=== PATIENT | male | born 1940 | race Caucasian/White ===

== ENCOUNTER 2016-11-09 00:14 | Emergency (ER) | payer OTHER ==
[~2016-11-09] VITALS: Ht 182.9 cm; Wt 61.0 kg
[2016-11-09 00:18] VITALS: TEMP 36.5; Ht 182.9 cm; Wt 61.0 kg
--- NOTE | 2016-11-09 00:40 | EMERGENCY ROOM VISIT NOTE ---
History Report prepared by Antonella: Amadou Maradiaga Under the Supervision of: Dr. Myles Wills D.O. First contact with patient: 00:22 Chief Complaint: ILLNESS Stated Complaint: SEVERE ITCHTY HEAD,SWEATS,NOT FEELING WELL History of Present Illness The patient is a 76 year old male who presents to the Emergency Room with complaints of constant weakness beginning prior to arrival. He currently rates his discomfort a 5/10 in severity. The patient states that he was watching the evening news, and his scalp began to itch uncontrollably. He reports that he has just taken a shower, and he uses dandruff shampoo. The patient notes that once his scalp stopped itching he began to experience diaphoresis. He states that he went up stairs and tried to vomit because he thought that would help, but he could not vomit. The patient reports that he then began experiencing left -sided abdominal pain that spread to his left arm. He notes that his heart is on the right side of his chest. The patient states that the past few nights he has been experiencing pain between his should blades. He denies having a rash, UT, and shortness of breath. Source of History: patient Onset: prior to arrival Position: other (global) Symptom Intensity: 5/10 Quality: other (weakness) Associated Symptoms: + abdominal pain (left-sided), + diaphoresis, No SOB, No rash Review of Systems See HPI for pertinent positives and negatives. A total of ten systems were reviewed and were otherwise negative. Family History No pertinent family history stated. Social History Smoking Status: Never Smoker Marital Status: Housing Status: lives with significant other Occupation Status: retired Current/Historical Medications Scheduled [Glaucoma Drops], Unknown Dose OP DIRECTED Allergies Coded Allergies: No Known Allergies (Unverified , 11/09/16) Physical Exam Vital Signs Date Time Temp Pulse Resp B/P Pulse Ox O2 Delivery O2 Flow Rate FiO2 11/09/16 01:46 70 20 110/63 98 Room Air 11/09/16 00:52 98 Room Air 11/09/16 00:50 100 Room Air 11/09/16 00:49 75 11/09/16 00:18 36.5 76 20 118/77 96 Room Air Physical Exam GENERAL: Awake, alert, well-appearing, in no distress HENT: Normocephalic, atraumatic. Oropharynx unremarkable. EYES: Normal conjunctiva. Sclera non-icteric. NECK: Supple. No nuchal rigidity. FROM. No JVD. RESPIRATORY: Clear to auscultation. CARDIAC: Regular rate, normal rhythm. Extremities warm and well perfused. Pulses equal. ABDOMEN: Soft, non-distended. No tenderness to palpation. No rebound or guarding. No masses. Pectus excavatum. RECTAL: Deferred. MUSCULOSKELETAL: Chest examination reveals no tenderness. The back is symmetrical on inspection without obvious abnormality. There is no CVA tenderness to palpation. No joint edema. LOWER EXTREMITIES: Calves are equal size bilaterally and non-tender. No edema. No discoloration. NEURO: Normal sensorium. No sensory or motor deficits noted. SKIN: No rash or jaundice noted. Medical Decision & Procedures ER Provider Diagnostic Interpretation: X-ray: Per my interpretation Chest view: dextrocardia, pleural base density in the left lower lobe, negative pneumothorax. Laboratory Results 11/09/16 00:45 Red Blood Count 4.29, Mean Corpuscular Volume 97.9, Mean Corpuscular Hemoglobin 32.6, Mean Corpuscular Hemoglobin Concent 33.3, Mean Platelet Volume 10.1, Neutrophils (%) (Auto) 75.3, Lymphocytes (%) (Auto) 17.0, Monocytes (%) (Auto) 5.8, Eosinophils (%) (Auto) 1.5, Basophils (%) (Auto) 0.2, Neutrophils # (Auto) 3.49, Lymphocytes # (Auto) 0.79, Monocytes # (Auto) 0.27, Eosinophils # (Auto) 0.07, Basophils # (Auto) 0.01 11/09/16 00:45 Test 11/09/16 00:45 11/09/16 02:18 White Blood Count 4.64 K/uL (4.8-10.8) Red Blood Count 4.29 M/uL (4.7-6.1) Hemoglobin 14.0 g/dL (14.0-18.0) Hematocrit 42.0 % (42-52) Mean Corpuscular Volume 97.9 fL (80-100) Mean Corpuscular Hemoglobin 32.6 pg (25-34) Mean Corpuscular Hemoglobin Concent 33.3 g/dl (32-36) Platelet Count 142 K/uL (130-400) Mean Platelet Volume 10.1 fL (7.4-10.4) Neutrophils (%) (Auto) 75.3 % Lymphocytes (%) (Auto) 17.0 % Monocytes (%) (Auto) 5.8 % Eosinophils (%) (Auto) 1.5 % Basophils (%) (Auto) 0.2 % Neutrophils # (Auto) 3.49 K/uL (1.4-6.5) Lymphocytes # (Auto) 0.79 K/uL (1.2-3.4) Monocytes # (Auto) 0.27 K/uL (0.11-0.59) Eosinophils # (Auto) 0.07 K/uL (0-0.5) Basophils # (Auto) 0.01 K/uL (0-0.2) RDW Standard Deviation 45.7 fL (36.4-46.3) RDW Coefficient of Variation 12.9 % (11.5-14.5) Immature Granulocyte % (Auto) 0.2 % Immature Granulocyte # (Auto) 0.01 K/uL (0.00-0.02) Anion Gap 4.0 mmol/L (3-11) Est Creatinine Clear Calc Drug Dose 46.6 ml/min Estimated GFR () 68.6 Estimated GFR (Non- 59.2 BUN/Creatinine Ratio 21.8 (10-20) Calcium Level 8.7 mg/dl (8.5-10.1) Total Bilirubin 0.5 mg/dl (0.2-1) Direct Bilirubin 0.1 mg/dl (0-0.2) Aspartate Amino Transf (AST/SGOT) 48 U/L (15-37) Alanine Aminotransferase (ALT/SGPT) 37 U/L (12-78) Alkaline Phosphatase 97 U/L (45-117) Total Protein 6.8 gm/dl (6.4-8.2) Albumin 3.2 gm/dl (3.4-5.0) Bedside Troponin I 0.000 ng/ml (0-0.045) Laboratory results reviewed by me ECG Indication: abdominal pain Rate (beats per minute): 68 Rhythm: normal sinus Findings: RBBB (incomplete), other (non-specific ST&T change, normal axis) ED Course 0022: The patient was evaluated in room B06B. A complete history and physical exam was performed. 0245: I reevaluated the patient. He has no chest pain or itchy scalp. Discussed results and discharge instructions: he verbalized understanding and agreement. The patient is ready for discharge. Medical Decision Differential diagnosis: Etiologies such as cardiac ischemia, aortic dissection, pulmonary embolism, pneumonia, pneumothorax, musculoskeletal, infections, pericarditis, myocarditis , esophageal rupture, gastrointestinal, as well as others were entertained, anxiety, metabolic derangement, dermitis. Medication Reconciliation: I attest that I have personally reviewed the patient' s current medication list. Blood pressure screening: Patient was found to have normal blood pressure on screening and does not require follow-up. Patient resting in no distress on repeat examination no chest pain. Has 2 normal troponins and also has no further chest pain and arm pain or itchy scalp. I discussed the findings with the patient patient's . I do not suspect acute coronary syndrome. I do not know the etiology of his itchy scalp may have precipitated all of these complaints. However I was more concerned about a cardiac event. Patient will be discharged home Impression Primary Impression: Dermatitis Additional Impression: Arm pain, left Scribe Attestation The scribe's documentation has been prepared under my direction and personally reviewed by me in its entirety. I confirm that the note above accurately reflects all work, treatment, procedures, and medical decision making performed by me. Departure Information Dispostion Home / Self-Care Referrals Robin Dubon M.D. (PCP) Patient Instructions Chest Pain - [facility], ED Dermatitis Atopic Eczema Ch, [facility] Problem Qualifiers
[2016-11-09 00:50] VITALS: O2SAT 100
[2016-11-09] MEDS ORDERED: GLAUCOMA DROPS OP (00:59)
[2016-11-09 01:00] LABS: BASO % 0.2 %; BASO ABS # 0.01 K/uL (0-0.2); COMPLETE YES; EOS % 1.5 %; IG% 0.2 %; LYMPH ABS # 0.79 K/uL (1.2-3.4); MEAN CELL VOLUME 97.9 fL (80-100); MEAN CORPUSCULAR HEMOGLOBIN 32.6 pg (25-34); MEAN CORPUSCULAR HGB CONC 33.3 g/dl (32-36); MEAN PLATELET VOLUME 10.1 fL (7.4-10.4); MONO % 5.8 %; NEUT % 75.3 %; PLATELET COUNT 142 K/uL (130-400); RED BLOOD COUNT 4.29 M/uL (4.7-6.1); WHITE BLOOD COUNT 4.64 K/uL (4.8-10.8)
[2016-11-09 01:18] LABS: BUN/CREATININE RATIO 21.8 (10-20); CALCIUM 8.7 mg/dl (8.5-10.1); CREATININE 1.2 mg/dl (0.60-1.40); POTASSIUM 3.8 mmol/L (3.5-5.1)
[2016-11-09 03:00] VITALS: BP 110/67; PULSE 80; O2SAT 98
--- NOTE | 2016-11-09 06:49 | DIAGNOSTIC IMAGING REPORT ---
CHEST ONE VIEW PORTABLE CLINICAL HISTORY: Left-sided chest pain. COMPARISON STUDY: Chest radiograph December 07, 2011. FINDINGS: Apparent dextrocardia is again noted. There is no pneumothorax. There may be a small amount of loculated left pleural fluid which was present on prior exam of December 07, 2011. Distortion within the left lung is similar to prior exam. Findings are likely chronic. There is no consolidation to suggest pneumonia. There is no evidence of pulmonary edema. IMPRESSION: 1. No acute cardiopulmonary findings. No significant change in appearance the chest. 2. Suspected dextrocardia with asymmetric distortion/fibrosis within the left lung and possible chronic loculated left pleural effusion. Electronically signed by: Jesse Mishra M.D. 11/09/2016 6:47 AM Dictated Date/Time: 11/09/2016 6:44 AM
[2017-04-07] MEDS ORDERED: TIMO0.5S35 OP (09:33)
[2017-04-07] MEDS ORDERED: DORZ1SOL6 OP (09:33)
[2017-04-07] MEDS ORDERED: LATA0.5S OP (09:33)
[2017-04-12] MEDS ORDERED: OXYC-57 PO (08:55)
== END 2016-11-09 03:02 | disposition home or self-care (01) ==
LOC: C.EDB 00:15
DX: L30.9 Dermatitis, unspecified (principal); M79.602 Pain in left arm

== ENCOUNTER → 2017-02-23 | Outpatient (CLI) | payer OTHER ==
[~2017-02-23] MED LIST: GLAUCOMA DROPS OP
--- NOTE | 2017-02-23 13:38 | DIAGNOSTIC IMAGING REPORT ---
ABDOMEN ULTRASOUND FOR HERNIA CLINICAL HISTORY: R10.30 Groin [id number] Inguinal hernia5 mo hx of discomfort COMPARISON STUDY: None. FINDINGS: Small amount of fluid within the right inguinal canal. This may represent fluid within the patent processus vaginalis. No bowel identified. The fluid empties with compression. IMPRESSION: Small fluid containing right inguinal hernia. This may represent fluid within the patent processus vaginalis. Electronically signed by: Leonel Greene M.D. 02/23/2017 1:37 PM Dictated Date/Time: 02/23/2017 1:33 PM
== END | disposition home or self-care (01) ==
LOC: C.ULTR 12:18
PROVIDERS: ATTEND Family Medicine
DX: K40.90 Unilateral inguinal hernia, without obstruction or gangrene, not specified as recurrent (principal)